=== PATIENT | female | born 1935 | race Caucasian/White ===

== ENCOUNTER 2017-05-02 17:44 | Inpatient (IN) | payer MEDICARE, BC ==
[~2017-05-02] VITALS: Ht 149.9 cm; Wt 59.5 kg
--- NOTE | ~2017-05-02 | CT71 ---
[facility] A Service [facility] RADIOLOGY TEXT RESULTS PATIENT: SHMUEL BAUER V LOCATION: [facility] [address] : 34 UNIT #: [id number] AGE: [address]: Jareth Thurman MD SEX: F ORDER DR: [id number] [id number] [place], [place] [address] [id number] I MR#: [id number] Acc #: [id number] NAME: SHMUEL BAUER V. : 1935 SEX: F STUDY DATE/TIME: 05/02/2017 21:10 UNIT: [facility] ROOM: [facility] STUDY DESCRIPTION: CT Head Wo Contrast Attending Physician: Jareth Thurman M.D. Ordering Physician: Artemio Potts M.D. Primary Care Physician: Jareth Thurman M.D. MEDICAL IMAGING REPORT This report is preliminary unless electronic signature is present EXAM CT brain without contrast HISTORY Confusion. Disoriented for [address] exam was performed with one or more of the following radiation dose reduction techniques: automatic exposure control, adjustment of mA and/or kV according to patient size, and iterative reconstruction. FINDINGS CT brain without contrast demonstrates no intracranial hemorrhage, mass or edema. Beac-ls-ghvurvph chronic ischemic changes in the periventricular white matter bilaterally. Mild generalized cerebral cortical atrophy. No midline shift or ventricular dilatation or extraaxial fluid collection. IMPRESSION No acute findings. Dictated by... José Miguel Fitzpatrick M.D. THIS IS AN ELECTRONICALLY VERIFIED REPORT José Miguel Fitzpatrick M.D. at 05/03/2017 11:26 PM DFJohnathan/andrew TD: 05/03/2017 04:23 JOB #: [id number] MEDICAL IMAGING REPORT [facility] A Service [facility] RADIOLOGY TEXT RESULTS PATIENT: SHMUEL BAUER V LOCATION: [facility] 569 : 34 UNIT #: [id number] AGE: [address]: Jareth Thurman MD SEX: F ORDER DR: Page 1 of 1 COPY
--- NOTE | ~2017-05-02 | CR72 ---
[facility] A Service of [facility] RADIOLOGY TEXT RESULTS PATIENT: SHMUEL BAUER V LOCATION: [facility] 569-01 : 34 UNIT #: [id number] AGE: [address]: Jareth Thurman MD SEX: F ORDER DR: [id number] [facility] [address] [facility]. [place], [place] [address] [id number] I MR#: [id number] Acc #: [id number] NAME: SHMUEL BAUER V. : 1935 SEX: F STUDY DATE/TIME: 05/02/2017 18:34 UNIT: [facility] ROOM: 865[address] STUDY DESCRIPTION: CR Chest Single View Portable Attending Physician: Jareth Thurman M.D. Ordering Physician: Ed Osito Guzman M.D. Primary Care Physician: Jareth Thurman M.D. MEDICAL IMAGING REPORT This report is preliminary unless electronic signature is present EXAM Portable chest HISTORY Fever, shortness of air for 1 day. FINDINGS Mild cardiac enlargement. Borderline to mild vascular congestion. No airspace infiltrates or pleural effusions. Mild linear atelectasis or scarring in the lower lungs. IMPRESSION No acute findings. Dictated by... José Miguel Fitzpatrick M.D. THIS IS AN ELECTRONICALLY VERIFIED REPORT José Miguel Fitzpatrick M.D. at 05/03/2017 11:23 PM MAE/andrew TD: 05/03/2017 00:48 JOB #: [id number] MEDICAL IMAGING REPORT Page 1 of 1 COPY
--- NOTE | ~2017-05-02 | CO ---
Unit #: [id number] #: [id number] Patient: SHMUEL BAUER V [id number] [address] [place], [place] [address] [id number] I MR#: [id number] NAME: SHMUEL BAUER ROOM: 569 Age: 81 Sex: F Admission Date: 05/02/2017 : 1935 Attending Physician: Jareth Thurman M.D. Primary Care Physician: Jareth Thurman M.D. CONSULTATION REPORT HISTORY Ms. Bauer is an 81-year-old white female, well known to me, with a history of COPD, chronic atrial fibrillation and CHF who presented with increasing shortness of breath, some cough and congestion and altered mental status. She may have also had some abdominal complaints. A CT scan of the abdomen and pelvis showed no major abdominal pathology. It did show some cholelithiasis without significant evidence of cholecystitis. There was noted to be some right base consolidation and a 9-mm right lower lobe nodule. On arrival to the emergency room, she was listed as having an O2 saturation on room at 91%, blood pressure 129/84. Temperature was 100.1. We have been asked to see. PAST MEDICAL HISTORY 1. COPD. 2. Chronic atrial fibrillation. 3. Osteoporosis. 4. Multiple compression fractures. 5. History of chronic systolic congestive heart failure. 6. Obstructive sleep apnea, maintained on CPAP. 7. Hyperlipidemia. 8. She also has a history of a right lower lobe 5-mm nodule and a left lower lobe nodule from, I believe, January of 2016. PAST SURGICAL HISTORY 1. She has had a past breast biopsy. 2. Bunionectomy. 3. Umbilical hernia repair. 4. Uterine repair. 5. Cataract surgery. 6. Right foot surgery. 7. Right wrist surgery. 8. Left wrist surgery. HOME MEDICATIONS Lortab, Lanoxin, Xanax, Symbicort 160/4.5, Atrovent inhaler, albuterol inhaler, potassium, Singulair, DuoNeb, Coumadin, acetaminophen, Bumex, Cardizem CD, prednisone 5 mg every morning, Neurontin. FAMILY HISTORY Negative for lung disease. SOCIAL HISTORY Reformed smoker. No alcohol. No drugs. She is . Lives with daughter. Unit #: [id number] #: [id number] Patient: SHMUEL BAUER V REVIEW OF SYSTEMS Patient is somewhat confused. Difficult to obtain good history. PHYSICAL EXAMINATION GENERAL: White female in no distress, lying in bed. VITAL SIGNS: Blood pressure 117/72, pulse 110, respiratory rate 18, temperature 97.6. HEENT: Normocephalic, atraumatic. Pupils equal, round and reactive. Sclerae are nonicteric. Nasal passages are patent. Posterior pharynx clear. Somewhat dry. NECK: Neck is supple. Trachea midline. RESPIRATORY: Lungs fairly clear bilaterally. CARDIAC: Irregular rate and rhythm. Could not appreciate murmur, rub or gallop. ABDOMEN: Nontender. Bowel sounds present. No hepatosplenomegaly. EXTREMITIES: Without clubbing, cyanosis or edema. NEUROLOGIC: She is awake, confused, moves all extremities symmetrically. SKIN: Warm and dry. PSYCHIATRIC: Affect calm. DIAGNOSTIC STUDIES IMAGING: CT scan personally reviewed. Chest x-ray - No obvious acute infiltrate. LABORATORY STUDIES: Arterial blood gases show pH of 7.42, pCO2 46, pO2 63 on 2 liters oxygen. Chemistry is unremarkable. Ammonia 23. Lactic acid 1.7 and 1.5. TSH is 2.49. Coags okay. INR 1.3. White count 11,800, hematocrit 40.9. Initial white count 15,500. Blood cultures currently pending; negative x24 hours. IMPRESSION 1. Right lower lobe consolidation consistent with pneumonia. 2. A 9-mm right lower lobe nodule. 3. History of previous nodules in 2016. 4. Cholelithiasis. 5. COPD. 6. Chronic A fib. 7. History of CHF. 8. Obstructive sleep apnea, maintained on CPAP. 9. Hyperlipidemia. PLAN Agree with treatment with inhaled bronchodilators, burst steroids and antibiotics for community-acquired pneumonia. Will need followup chest CT in 3 months to ensure resolution and to follow nodules. They will need to be followed for a total of 2 years to document benignity. Dictated by... Balaji Rodas M.D. JEREMIAS/myron TD: 05/04/2017 13:42 JOB #: [id number] Unit #: [id number] #: [id number] Patient: SHMUEL BAUER V CONSULTATION REPORT Page 1 of 1 X Balaji Rodas MD CONSULTATION REPORT
--- NOTE | ~2017-05-02 | EKG ---
PATIENT: SHMUEL BAUER UNIT #: [id number] Ventricular Rate: 106 BPM Atrial Rate: 100 BPM QRS Duration: 82 ms Q-T Interval: 326 ms QTC Calculation(Bezet): 433 ms Calculated R Elliott: -4 degrees Calculated T Elliott: 152 degrees Diagnosis Line: Atrial fibrillation with rapid ventricular Diagnosis Line: response with premature ventricular or aberrantly Diagnosis Line: conducted complexes Diagnosis Line: Nonspecific ST and T wave abnormality Diagnosis Line: Abnormal ECG Diagnosis Line: When compared with ECG of 31-JAN-2016 07:46, Diagnosis Line: No significant change was found Diagnosis Line: Confirmed by CHUN MALDONADO MD ([id number]) on Diagnosis Line: 05/02/2017 10:53:02 PM INTERPRETING MD: SONIDO
--- NOTE | ~2017-05-02 | CT4 ---
[facility] A Service of [facility] & [facility] RADIOLOGY TEXT RESULTS PATIENT: SHMUEL BAUER V LOCATION: [facility] 569-01 : 34 UNIT #: [id number] AGE: [address]: Jareth Thurman MD SEX: F ORDER DR: [id number] [facility] [address] [facility]. [place], [place] [address] [id number] I MR#: [id number] Acc #: [id number] NAME: SHMUEL BAUER V. : 1935 SEX: F STUDY DATE/TIME: 05/03/2017 8:55 UNIT: [facility] ROOM: [facility] STUDY DESCRIPTION: CT Abd and Pelv Wo Cont Attending Physician: Jareth Thurman M.D. Ordering Physician: Jareth Thurman M.D. Primary Care Physician: Jareth Thurman M.D. MEDICAL IMAGING REPORT This report is preliminary unless electronic signature is present EXAM CT of the abdomen and pelvis without contrast. INDICATIONS Leukocytosis. Right-sided abdominal pain for [address] images were obtained from the dome of the diaphragm through the symphysis pubis. No oral or intravenous contrast material was administered. This CT exam was performed with one or more of the following radiation dose reduction techniques: automatic exposure control, adjustment of mA and/or kV according to patient size, and iterative reconstruction. FINDINGS Patient is noted to have cardiomegaly. There are also trace bilateral pleural effusions. There is a stable, at least, probably partially calcified nodule within the right lower lobe which was present in January of 2016, and appears unchanged. The patient does have an additional nodular density within the right lower lobe measuring up to about 9 mm in size which was not present on the prior examination, as well as an additional area of consolidation which has a somewhat mass-like configuration abutting the dome of the diaphragm. This area measures up to 1.6 x 3.3 cm. This certainly could reflect pneumonia in the appropriate clinical setting. There is also some left basilar atelectasis. The liver appears unremarkable. Patient is again noted to have gallstones without any convincing evidence of acute cholecystitis. There is suggestion of a polypoid lesion within the gallbladder which is about 7 mm in size. It is located within a nondependent portion with gallbladder, and it measures about 7 mm in size. It may have been present on the prior exam, but may be slightly larger. I would suggest further evaluation with gallbladder ultrasound. Adrenal glands appear unremarkable. Spleen is STS. [facility] A Service of [facility] & [facility] RADIOLOGY TEXT RESULTS PATIENT: SHMUEL BAUER V LOCATION: [facility] 569-01 : 34 UNIT #: [id number] AGE: [address]: Jareth Thurman MD SEX: F ORDER DR: within normal limits, pancreas is probably mildly atrophic. Patient has bilateral renal cysts including parapelvic cysts and there are nonobstructing stones identified within the left kidney. No distal ureteral or bladder stones are seen. There is dense atherosclerotic involvement of the abdominal aorta. There is no evidence of mechanical bowel obstruction. Patient does have some colonic diverticulosis without any convincing evidence of diverticulitis. The appendix is visualized and is within normal limits. Review of bony windows demonstrates multiple compression deformities involving T10, T12, L1 and L2. All of these were present on the prior exam from January of 2016. There is also compression deformity noted at T9. Again, I think these findings are stable when compared to the CT from 2016. The patient is osteoporotic and also has evidence of an old right inferior pubic ramus fracture. I do not see any aggressive osseous abnormalities. IMPRESSION 1. This patient has some consolidation at the right lung base. This certainly could reflect pneumonia in the appropriate clinical setting. It does have a somewhat mass-like configuration, and I would suggest short-term CT follow up in 3 months to document complete resolution. There is also a 9 mm nodule seen within the right lower lobe which may reflect some additional infectious infiltrate, but again attention to it on a short-term follow up CT is recommended. 2. Trace bilateral pleural effusions. 3. Large bilateral renal cysts. 4. Cholelithiasis without convincing evidence of acute cholecystitis. There is also a suggestion of potentially soft tissue density in a nondependent portion of the gallbladder measuring up to about 7 mm in size. This is indeterminate. I would suggest additional characterization with gallbladder ultrasound. 5. Nonobstructing stones identified within the left kidney. 6. Colonic diverticulosis, without any convincing evidence of diverticulitis. 7. The patient's appendix is visualized and is within normal limits. Please see the body of the report for any other additional incidental findings. Dictated by... Mavis Guevara M.D. THIS IS AN ELECTRONICALLY VERIFIED REPORT Mavis Guevara M.D. at 05/03/2017 4:32 PM AFF/jt TD: 05/03/2017 16:24 JOB #: [id number] [facility] A Service of [facility] & [facility] RADIOLOGY TEXT RESULTS PATIENT: SHMUEL BAUER V LOCATION: [facility] 569-01 : 34 UNIT #: [id number] AGE: [address]: Jareth Thurman MD SEX: F ORDER DR: MEDICAL IMAGING REPORT Page 1 of 1 COPY
--- NOTE | ~2017-05-02 | US67 ---
[facility] A Service of [facility] RADIOLOGY TEXT RESULTS PATIENT: SHMUEL BAUER V LOCATION: [facility] 569-01 : 34 UNIT #: [id number] AGE: [address]: Jareth Thurman MD SEX: F ORDER DR: [id number] [facility] [address] [facility]. [place], [place] [address] [id number] I MR#: [id number] Acc #: [id number] NAME: SHMUEL BAUER V. : 1935 SEX: F STUDY DATE/TIME: 05/04/2017 8:32 UNIT: [facility] ROOM: [facility] STUDY DESCRIPTION: US Gallbladder Attending Physician: Jareth Thurman M.D. Ordering Physician: Jareth Thurman M.D. Primary Care Physician: Jareth Thurman M.D. MEDICAL IMAGING REPORT This report is preliminary unless electronic signature is present EXAM Right upper quadrant abdominal ultrasound INDICATION Epigastric region pain for the past 2 months. PROCEDURE Watts-scale and Doppler imaging right upper quadrant of the abdomen. COMPARISON CT from 05/03/2017. FINDINGS Pancreas obscured by bowel gas and not well seen. Liver measures 13.1 cm in length. No liver mass is seen on submitted images. Right kidney not well seen but measures approximately 10.9 cm. There is a cyst in the upper pole right kidney that measures 7.4 cm. Second cyst in the right kidney measures 2.8 cm. There are multiple stones in the gallbladder. No gallbladder wall thickening or pericholecystic fluid. Common duct measures 4 mm. IMPRESSION 1. Multiple stones in the gallbladder but no ultrasound findings to suggest acute cholecystitis. 2. Right renal cysts. Dictated by... Luca Mohamud M.D. THIS IS AN ELECTRONICALLY VERIFIED REPORT Luca Mohamud M.D. at 05/07/2017 8:50 AM [facility] A Service of [facility] RADIOLOGY TEXT RESULTS PATIENT: SHMUEL BAUER V LOCATION: [facility] 569-01 : 34 UNIT #: [id number] AGE: [address]: Jareth Thurman MD SEX: F ORDER DR: NADER/angi TD: 05/04/2017 13:33 JOB #: [id number] MEDICAL IMAGING REPORT Page 1 of 1 COPY
--- NOTE | ~2017-05-02 | DS ---
Unit #: [id number] #: [id number] Patient: SHMUEL BAUER V [id number] [address] [place], [place] [address] [id number] I MR#: [id number] NAME: SHMUEL BAUER V. ROOM: 569 Age: 81 Sex: F Admission Date: 05/02/2017 : 1935 Discharge Date: 05/08/2017 Attending Physician: Jareth Thurman M.D. Primary Care Physician: Jareth Thurman M.D. DISCHARGE SUMMARY PRINCIPAL DISCHARGE DIAGNOSES 1. Community-acquired pneumonia right lower lobe. 2. 9 mm right lower lobe pulmonary nodule. 3. Questionable lesion within the gallbladder seen on CT scan but not ultrasound. 4. Gallstones. 5. Antibiotic-associated diarrhea with negative stool for C. diff. 6. Chronic obstructive pulmonary disease. 7. Acute delirium, toxic metabolic. 8. Chronic A-fib. 9. Anticoagulation. 10. Obstructive sleep apnea syndrome. 11. Osteoporosis. 12. Peripheral neuropathy. 13. Chronic systolic congestive heart failure. CONSULTANTS Dr. Edouard Rodas. REASON FOR HOSPITALIZATION The patient is an 81-year-old white female with a history of COPD, CHF, chronic A-fib, anticoagulation therapy, peripheral neuropathy, obstructive sleep apnea syndrome, presented to the emergency room with change in mental status for over 24 hours. She had no other symptoms whatsoever. She had low grade temp in the emergency room. Her protime was subtherapeutic. White count was elevated at 15.5. Lactic acid was normal. GFR was 46.9. Ammonia was normal. Cardiac enzymes normal. Urinalysis normal. EKG - A-fib. Chest x-ray - no active disease. CT scan - no active disease and the patient was admitted. HOSPITAL COURSE The patient was admitted to telemetry bed. She was started on Zosyn for some way they thought she had possible aspiration pneumonia. The patient had abdominal tenderness on exam and CT scan of the abdomen and pelvis was performed. Her ABGs on 2 L showed a pH of 7.442, a pCO2 of 46, a pAO2 of 63. TSH was normal. B12 was normal. Folic acid was normal. Blood cultures - no growth. MRI of the brain - small vessel disease, asymmetry of the CHF in the left frontal area that they felt was benign. CT scan of the abdomen and pelvis showed trace bilateral pleural effusions, right lower lobe consolidation, 9 mm nodule right lower lobe, large bilateral renal cysts, cholelithiasis without cholecystitis, questionable soft tissue lesion in the gallbladder, nonobstructing stones in the left kidney, diverticulosis, no diverticulitis. At that point, pulmonary services were consulted. They switched her antibiotics to Zithromax and Unit #: [id number] #: [id number] Patient: SHMUEL BAUER for community-acquired pneumonia and recommended a three month followup CT scan. Gallbladder ultrasound was performed for further evaluation of the questionable lesion in the gallbladder and just showed stones without any other complications. No mass seen. The patient developed antibiotic-associated diarrhea. Stool for C. diff toxin was negative. Adjustments were made in her warfarin. Her protime yesterday was 1.9. She was switched to oral antibiotics. She has received OT and PT while here. Currently, she appears to be stable for discharge. She is still having diarrhea but no nausea, vomiting or abdominal pain. She is afebrile. Vital signs are otherwise stable. O2 sats 99%. Protime is pending this morning, will be checked prior to discharge to know what doses to send her home on. She is on a healthy heart diet. She is to have an office visit with us in one week and office visit with Dr. Rodas in three months. Will repeat her CT scan of the abdomen and chest in three months for followup to the right lower lobe pulmonary nodule as well as the questionable gallbladder lesion. [facility] is to follow for home health and physical therapy. CURRENT MEDS 1. Albuterol sulfate, one puff q.i.d. p.r.n. 2. Symbicort 160/4.5, two puffs q.12. 3. Prednisone 5 mg p.o. daily. 4. Tylenol 650 q.6 p.r.n. 5. Warfarin dose to be determined after a protime. 6. Xanax 0.25 mg p.o. q. h.s. 7. Digoxin 0.125 mg p.o. daily. 8. Cardizem CD 120 mg p.o. daily. 9. Omnicef 300 mg p.o. b.i.d. for an additional two days. 10. Bumex 2 mg, one p.o. daily. 11. Pepcid 40 mg p.o. daily. 12. Singulair 10 mg p.o. daily. 13. Florastor 250 mg p.o. b.i.d. 14. Multivitamins, one daily. 15. Lortab 10/325, one q.6 hours p.r.n. for pain. 16. Potassium chloride 20 mEq, one p.o. b.i.d. 17. Albuterol/Atrovent unit dose mini nebs four times daily p.r.n. 18. Imodium one p.o. q.4 hours p.r.n. for diarrhea. Depending on her protime, she will follow up in the office with a protime in a week. Will have her check it sometime midway between or have [facility] draw it at home but, again, it is still pending at the time of dictation. It just came back at 2.4 so the patient will be sent home on 2 mg p.o. daily with a protime in our office in one week as well as per [facility] in three days. Dictated by... Jareth Thurman M.D. RUBY/matias TD: 05/09/2017 11:03 JOB #: [id number] Unit #: [id number] #: [id number] Patient: SHMUEL BAUER V DISCHARGE SUMMARY Page 1 of 1 X Jareth Thurman MD X DISCHARGE SUMMARY
--- NOTE | ~2017-05-02 | MR18 ---
[facility] A Service of [facility] & [facility] RADIOLOGY TEXT RESULTS PATIENT: SHMUEL BAUER V LOCATION: [facility] 569-01 : 34 UNIT #: [id number] AGE: [address]: Jareth Thurman MD SEX: F ORDER DR: [id number] [facility] [address] [facility] [place], [place] [address] [id number] MR#: [id number] #: [id number] NAME: SHMUEL BAUER V. : 1935 SEX: F STUDY DATE/TIME: 05/03/2017 14:35 UNIT: [facility] ROOM: [facility] STUDY DESCRIPTION: MR Brain Wo Contrast Attending Physician: Jareth Thurman M.D. Ordering Physician: Jareth Thurman M.D. Primary Care Physician: Jareth Thurman M.D. MRI CENTER REPORT This report is preliminary unless electronic signature is present. EXAM MRI of the brain without contrast, 05/03/17 COMPARISON STUDIES MRI of the brain without contrast dated 09/20/13 HISTORY Disoriented for 3 days. History of aspiration pneumonia. FINDINGS Multisequence, multiplanar imaging of the brain was obtained without contrast. FINDINGS No acute stroke, space occupying intracranial mass, mass effect, midline shift or hydrocephalus. Motion artifact is seen in multiple sequences. There is prominence of CSF in the left frontal convexity, asymmetrical when compared to the right. It is extraaxial but it appears to cause mild mass effect on the adjacent brain pattern, and a subtle lesion like arachnoid cyst cannot be excluded. It measures 1.5 cm in height and 2.9 x 2.8 cm in axial dimensions. It appears to be a relatively more prominent when compared to the prior study from 3 years ago based on the axial images; but in the sagittal images, it is relatively stable. Multiple hyperintense T2 signal lesions are noted in the periventricular white matter and subcortical white matter. Basal ganglia, brain stem and cerebellar hemispheres are within normal limits. IMPRESSION 1. No acute intracranial abnormality including acute stroke. 2. There asymmetrical prominence of CSF in the left frontal convexity. It is not as well seen in the prior study from 3 years ago, and the [facility] A Service of [facility] & [facility] RADIOLOGY TEXT RESULTS PATIENT: SHMUEL BAUER V LOCATION: [facility] 569-01 : 34 UNIT #: [id number] AGE: [address]: Jareth Thurman MD SEX: F ORDER DR: axial sequences, but the sagittal images are relatively stable. It could represent incidental prominent CSF in the sulcus or an incidental benign lesion like arachnoid cyst with some mass effect on the adjacent brain pattern. Either way, it is benign. 3. No hydrocephalous, midline shift or hemorrhage is seen. 4. Scattered hyperintense T2 signal lesions in the brain are noted predominantly in the supratentorial white matter, likely related to moderate chronic microvascular ischemic change or migraine based on age and statistics. Dictated by... Nilesh Varma M.D. THIS IS AN ELECTRONICALLY VERIFIED REPORT Nilesh Varma M.D. at 05/08/2017 11:34 AM CPR/jutsin TD: 05/03/2017 22:43 JOB #: [id number] MRI CENTER REPORT Page 1 of 1 COPY
[~2017-05-02 17:44] MED LIST: ACETAMINOPHEN325 MG PO; ACTONEL PO; AEROECLIPSE II1 EACH MC; ALBUTEROL MININEB NEB; ALBUTEROL0.83 MG/ML IH; ALBUTEROL0.83 MG/ML INH; ALBUTEROL17 GM INH; ALBUTEROL2.5 MG/0.5 IH; ALPRAZOLAM PO; ARTIFICIAL TEAR15 ML OP; ATORVASTATIN CA10 MG PO; ATROVENT 0.03%30 ML NS; ATROVENT INH; ATROVENT NEB; BACLOFEN10 MG PO; BACTRIM DS TABL1 TA2 PO; BENZONATATE PO; BUMETANIDE1 MG PO; BUMEX2 MG PO; BUTRANS1 EAC1 TD; CALCIUM + D 6001 TA1 PO; CALCIUM 500 + D1 TAB PO; CALCIUM 600 +1 EAC3 PO; CALCIUM CARBON600 M1 PO; CARDIZEM CD180 M1 PO; CARDIZEM CD240 M1 PO; CARDIZEM CD240 M2 PO; CARDIZEM SR PO; CLEOCIN150 MG PO; COUMADIN; COUMADIN PO; COUMADIN1 MG PO; DARVOCET-N 1001 TAB PO; DELTASONE20 MG; DELTASONE20 MG PO; DIAZEPAM PO; DIGOX0.125 MG PO; DILTIAZEM 24HR240 M2 PO; DILTIAZEM 24HR240 MG PO; DOCUSATE SODIU100 MG PO; DUONEB; DUONEB 2.5-0.5 M3 ML NEB; FLEXERIL PO; FLEXERIL10 M1 PO; FLEXERIL10 MG PO; FLONASE16 GM; FLOVENT HFA12 GM; FORTEO SUBQ; FORTEO2.4 ML SQ; FOSAMAX; FOSAMAX5 MG PO; FUROSEMIDE10 MG/M1 IJ; FUROSEMIDE40 MG PO; GABAPENTIN PO; GABAPENTIN300 M2 PO; GABAPENTIN300 MG PO; GABAPENTIN600 MG PO; HYDROCODON-ACE1 EAC5 PO; HYDROCODON-ACE1 EACH PO; HYDROCODONE-APA1 T55 PO; HYDROCORTISONE28 GM TOP; HYDROGESIC 5/501 CAP PO; K-DUR20 ME1 PO; K-DUR20 ME2 PO; K-TAB ER20 MEQ PO; KCL PO; KLOR-CON PO; LANOXIN PO; LANOXIN125 MCG PO; LASIX PO; LASIX20 MG PO; LEVAQUIN PO; LEVAQUIN750 MG PO; LINZESS290 MCG PO; LIPITOR PO; LORTAB 10-3251 EACH PO; LORTAB 5-325 M1 EACH PO; LORTAB 7.5-5001 TAB PO; MEDROL4 MG/DOSE- PO; MONTELUKAST SOD10 MG PO; MULTIVITAM1 TAB.CH11 PO; NEURONTIN100 MG PO; NEURONTIN600 MG DOB; OXYIR5 MG PO; PERCOCET7.5 PO; POTASSIUM CHLO10 MEQ PO; PREDNISONE PO; PREDNISONE10 MG PO; PREDNISONE5 M1 PO; PREDNISONE5 MG PO; PROAIR HFA8.5 GM; PROAIR HFA8.5 GM IH; PROAIR HFA8.5 GM PO; PROVENTIL; SEREVENT D50 MCG/DIS; SINGULAIR PO; SYMBICORT 160/4.6 GM INH; SYMBICORT INH; SYMBICORT80 INH; TESSALON200 MG PO; VICODIN 5/500 T1 TAB PO; WARFARIN PO; WARFARIN SODIUM2 M1 PO; WARFARIN SODIUM2 MG PO; XANAX0.5 M1 PO; ZITHROMAX PO; [UNRECOGNIZED DRUG - OTHER] PO
[2017-05-02 19:01] LABS: BASOPHIL# 0.1 X10e3 (0-0.3); BASOPHIL% 0.3 % (0-2.5); DIFF IND YES; EOSINOPHIL% 0.2 % (0.0-7.0); HEMATOCRIT 40.3 % (35.0-45.0); HEMOGLOBIN 13.4 gm/dL (12.0-16.0); LYMPHOCYTE# 0.9 X10e3 (1.0-3.5); LYMPHOCYTE% 5.8 % (17.0-45.0); MEAN CELL VOLUME 94.4 FL (83-96); MEAN CORPUSCULAR HEMOGLOBIN 31.4 PG (28-34); MEAN CORPUSCULAR HGB CONC 33.3 g/dL (30-36); MEAN PLATELET VOLUME 8.3 FL (6.5-11.5); MONOCYTE# 1.1 X10e3 (0-1.0); MONOCYTE% 6.9 % (3.0-12.0); NEUTROPHIL# 13.4 X10e3 (1.5-7.1); NEUTROPHIL% 86.8 % (40-75); PLATELET COUNT 162 X10e3 (140-420); RED BLOOD COUNT 4.27 X10e (3.90-5.30); RED CELL DISTRIBUTION WIDTH 12.9 % (11.0-15.5); WHITE BLOOD COUNT 15.5 X10e3 (4.0-10.5)
[2017-05-02 19:10] LABS: INR 1.9; PARTIAL THROMBOPLASTIN TIME 38.7 SECONDS (23.5-31.3); PROTHROMBIN TIME (PATIENT) 21.1 SECONDS (10.0-11.7)
[2017-05-02 19:14] LABS: PLATELET ESTIMATE NORMAL (NORMAL)
[2017-05-02 19:22] LABS: ALBUMIN SERUM 3.9 g/dL (3.5-5.0); BILIRUBIN, DIRECT 0.1 mg/dL (0.0-0.2); BILIRUBIN,INDIRECT 0.9 mg/dL (0.0-0.9); BUN/CREATININE RATIO 19.09; CALCIUM SERUM 9.2 mg/dL (8.4-10.2); CREATININE SERUM 1.1 mg/dL (0.6-1.4); GLOM FILT RATE Estimated 46.7 mL/min (>60); POTASSIUM 4.1 mmol/L (3.5-5.1); PROTEIN TOTAL SERUM 6.8 g/dL (6.0-8.3)
[2017-05-02 19:54] LABS: URINE SOURCE CLEAN CATCH
[2017-05-02 20:00] LABS: POC - TROPONIN <0.05 ng/mL (<=0.05)
[2017-05-02 20:01] LABS: URINE APPEARANCE CLEAR; URINE BILIRUBIN NEG (NEG); URINE BLOOD NEG (NEG); URINE COLOR YELLOW; URINE GLUCOSE NEG (NEG); URINE KETONE NEG (NEG); URINE LEUKOCYTE ESTERASE NEG (NEG); URINE NITRATE NEG (NEG); URINE PH 8.5 (5-8); URINE PROTEIN NEG (NEG); URINE SPECIFIC GRAVITY 1.016 (1.003-1.035)
[2017-05-02 20:03] LABS: CULTURE INDICATED? NO
[2017-05-02 22:57] LABS: POC - CKMB <1.0 ng/mL (0.0-7.9); POC - TROPONIN <0.05 ng/mL (<=0.05)
[2017-05-03] MEDS ORDERED: MULTI VITAMIN1 EACH PO (02:57)
[2017-05-03 06:44] LABS: HEMATOCRIT 39.8 % (35.0-45.0); HEMOGLOBIN 13.4 gm/dL (12.0-16.0); MEAN CELL VOLUME 94.3 FL (83-96); MEAN CORPUSCULAR HEMOGLOBIN 31.8 PG (28-34); MEAN CORPUSCULAR HGB CONC 33.8 g/dL (30-36); MEAN PLATELET VOLUME 8.6 FL (6.5-11.5); RED BLOOD COUNT 4.22 X10e (3.90-5.30); RED CELL DISTRIBUTION WIDTH 12.7 % (11.0-15.5)
[2017-05-03 07:00] LABS: INR 1.7; PROTHROMBIN TIME (PATIENT) 18.1 SECONDS (10.0-11.7)
[2017-05-03 07:25] LABS: BUN/CREATININE RATIO 17.77; CALCIUM SERUM 8.7 mg/dL (8.4-10.2); CREATININE SERUM 0.9 mg/dL (0.6-1.4); GLOM FILT RATE Estimated 59.6 mL/min (>60); POTASSIUM 3.6 mmol/L (3.5-5.1)
[2017-05-03 08:27] LABS: ARTERIAL BLD GAS O2 SATURATION 91.6 % (90.0-100.0); ARTERIAL BLOOD GAS CARBOXY HB 1.4 %sat (0.0-9.0); ARTERIAL BLOOD GAS HCO3 31.7 mmol/L; ARTERIAL BLOOD GAS MET HB 0.6 %sat (0.0-2.0); ARTERIAL BLOOD GAS PCO2 46.5 mmHg (35.0-45.0); ARTERIAL BLOOD GAS pH 7.442 (7.350-7.450)
[2017-05-03 08:28] LABS: ARTERIAL BLOOD GAS ALLEN TEST NORMAL; ARTERIAL BLOOD GAS ART SITE RIGHT RADIAL; ARTERIAL BLOOD GAS DELIVERY NASAL CANNULA; ARTERIAL BLOOD GAS PO2 63.1 mmHg (80.0-100); ARTERIAL DRAW? YES
[2017-05-03 10:17] LABS: FOLATE (FOLIC ACID) >23.3 ng/mL (>5.8)
[2017-05-04 06:05] LABS: HEMATOCRIT 40.9 % (35.0-45.0); HEMOGLOBIN 13.9 gm/dL (12.0-16.0); MEAN CELL VOLUME 94.8 FL (83-96); MEAN CORPUSCULAR HEMOGLOBIN 32.3 PG (28-34); MEAN PLATELET VOLUME 8.6 FL (6.5-11.5); RED BLOOD COUNT 4.31 X10e (3.90-5.30); RED CELL DISTRIBUTION WIDTH 12.8 % (11.0-15.5); WHITE BLOOD COUNT 11.8 X10e3 (4.0-10.5)
[2017-05-04 06:28] LABS: INR 1.3; PROTHROMBIN TIME (PATIENT) 13.7 SECONDS (10.0-11.7)
[2017-05-04 06:52] LABS: CALCIUM SERUM 8.6 mg/dL (8.4-10.2); GLOM FILT RATE Estimated 52.4 mL/min (>60); MAGNESIUM 1.9 mg/dL (1.6-3.0); POTASSIUM 4.1 mmol/L (3.5-5.1)
[2017-05-05 06:16] LABS: HEMATOCRIT 41.5 % (35.0-45.0); HEMOGLOBIN 14.1 gm/dL (12.0-16.0); MEAN CELL VOLUME 95.1 FL (83-96); MEAN CORPUSCULAR HEMOGLOBIN 32.3 PG (28-34); RED BLOOD COUNT 4.36 X10e (3.90-5.30); RED CELL DISTRIBUTION WIDTH 12.8 % (11.0-15.5); WHITE BLOOD COUNT 10.3 X10e3 (4.0-10.5)
[2017-05-05 07:00] LABS: INR 1.2; PROTHROMBIN TIME (PATIENT) 13.1 SECONDS (10.0-11.7)
[2017-05-06 07:30] LABS: INR 1.5; PROTHROMBIN TIME (PATIENT) 16.2 SECONDS (10.0-11.7)
[2017-05-07 06:09] LABS: HEMATOCRIT 42.1 % (35.0-45.0); HEMOGLOBIN 14.1 gm/dL (12.0-16.0); MEAN CELL VOLUME 95.3 FL (83-96); MEAN CORPUSCULAR HEMOGLOBIN 31.8 PG (28-34); MEAN CORPUSCULAR HGB CONC 33.4 g/dL (30-36); MEAN PLATELET VOLUME 8.2 FL (6.5-11.5); RED BLOOD COUNT 4.42 X10e (3.90-5.30); RED CELL DISTRIBUTION WIDTH 13.1 % (11.0-15.5); WHITE BLOOD COUNT 8.2 X10e3 (4.0-10.5)
[2017-05-07 06:37] LABS: INR 1.9; PROTHROMBIN TIME (PATIENT) 20.4 SECONDS (10.0-11.7)
[2017-05-07 06:49] LABS: ALBUMIN SERUM 3.5 g/dL (3.5-5.0); BILIRUBIN,TOTAL 0.5 mg/dL (0.2-2.0); BUN/CREATININE RATIO 18.18; CALCIUM SERUM 9.2 mg/dL (8.4-10.2); CREATININE SERUM 1.1 mg/dL (0.6-1.4); GLOM FILT RATE Estimated 46.7 mL/min (>60); POTASSIUM 4.2 mmol/L (3.5-5.1); PROTEIN TOTAL SERUM 6.7 g/dL (6.0-8.3)
[2017-05-08 06:41] LABS: INR 2.4
[2017-05-08] MEDS ORDERED: OMNICEF300 MG PO (10:59)
[2017-05-08] MEDS ORDERED: PEPCID40 MG PO (11:00)
[2017-05-08] MEDS ORDERED: FLORASTORKIDS250 MG PO (11:00)
[2017-05-08] MEDS ORDERED: IMMODIUM1 MG/5 M1 PO (11:02)
== END 2017-05-08 14:59 | disposition home health service (06) | DRG 193 ==
LOC: CED 17:44 → C5C 23:35 → CEDOF 23:35 → C5C 05-03 00:54
PROVIDERS: Emergency Medicine; Internal Medicine
DX: J18.9 Pneumonia, unspecified organism (principal); G92 Toxic encephalopathy; K52.1 Toxic gastroenteritis and colitis; G62.9 Polyneuropathy, unspecified; I50.22 Chronic systolic (congestive) heart failure; I48.2 Chronic atrial fibrillation; J44.9 Chronic obstructive pulmonary disease, unspecified; K80.80 Other cholelithiasis without obstruction; G47.33 Obstructive sleep apnea (adult) (pediatric); R91.1 Solitary pulmonary nodule; T36.95XA Adverse effect of unspecified systemic antibiotic, initial encounter; R41.0 Disorientation, unspecified; M81.0 Age-related osteoporosis without current pathological fracture; Z98.49 Cataract extraction status, unspecified eye
CPT/HCPCS: 36415; 36600; 70450; 70551; 71010; 74176; 76705; 80048; 80053; 80076; 81003; 82140; 82553; 82607; 82746; 82803; 82947; 83605; 83735; 84443; 84484; 85025; 85027; 85610; 85730; 87040; 87493; 93005; 94640; 94664; 94760; 96361; 96374; 97116; 97162; 97166; 97530; 99285; G8978-GP; G8979-GP; G8987-GO; G8988-GO; J0456; J0696; J1650; J2405; J2543